=== PATIENT | male | born 1990 | race Caucasian/White ===

== ENCOUNTER 2018-11-03 08:36 | Day surgery (SDC) | payer OTHER ==
[2018-11-03] MEDS ORDERED: CEFAZOLIN 2 GM/50 ML (PMX) 50 ML IVPB (09:00)
[2018-11-03] MEDS ORDERED: SOD CHLORIDE 0.9% 1,000 ML IV (09:00)
[2018-11-03] MEDS ORDERED: CEFAZOLIN 1 GM INJ (12:07)
[2018-11-03] MEDS ORDERED: MIDAZOLAM 1 MG/ML 2 ML INJ (12:08)
[2018-11-03] MEDS ORDERED: FENTAnyl 50 MCG/ML VIAL (12:08)
[2018-11-03] MEDS ORDERED: ONDANSETRON 4 MG INJ IV (12:30)
[2018-11-03] MEDS: LIDOCAINE 2% (MDV) 20 ML INJ (12:30)
[2018-11-03] MEDS ORDERED: LABETALOL HCL 20MG INJ IV (12:30)
[2018-11-03] MEDS ORDERED: hydrALAzine 20 MG INJ IV (12:30)
[2018-11-03] MEDS: BUPIVACAINE 0.5% (SDV) 30 ML INJ (12:30)
[2018-11-03] MEDS: BUPIVACAINE 0.25% (MPF) 30 ML INJ (12:30)
[2018-11-03] MEDS ORDERED: HYDROCODONE/APAP (5/325) TAB PO (13:00)
== END 2018-11-03 14:15 | disposition home or self-care (01) ==
LOC: SDS 08:36
DX: L72.0 Epidermal cyst (principal); I10 Essential (primary) hypertension; E11.9 Type 2 diabetes mellitus without complications
CPT/HCPCS: 14001; 82962; 88307